=== PATIENT | female | born 1960 ===

== ENCOUNTER → 2023-02-23 13:59 | Outpatient (CLI) | payer OTHER, SELFPAY ==
--- NOTE | ~2023-02-23 | MR_ITS ---
MRI of the lumbar spine Clinical History: Pain Technique: Axial T2-weighted images, and sagittal T1-weighted, T2-weighted, and and T2 fat-sat images were acquired. Findings: There is no fracture or subluxation of the lumbar spine. Vertebral bodies maintain normal h eight and alignment. No suspicious bone marrow signal abnormality seen. At L1-L2, there is right foraminal disc bulge with mild to moderate facet arthropathy. No central can al stenosis. There is moderate to advanced right neural foraminal narrowing. Left neural foramen pres erved. At L2-L3, there is degenerative disc narrowing with mild diffuse disc bulge and mild to moderate face t arthropathy. There is mild central canal stenosis. There is moderate left neural foraminal narrowin g, and minimal right neural foraminal narrowing. L3-L4, there is degenerative disc disease. Disc bulge and facet arthropathy result in mild central ca nal stenosis and moderate to advanced bilateral neural foraminal narrowing. At L4-L5, disc bulge and facet arthropathy result in mild central canal stenosis and right lateral re cess stenosis and particular. There is advanced right neural foraminal narrowing. There is mild to mo derate left neural foraminal narrowing. At L5-S1, there is mild disc bulge with mild to moderate facet arthropathy. No greg central canal st enosis. Neural foramina are preserved. Paravertebral soft tissues are unremarkable. Impression: Moderate degenerative spondylosis, with multilevel neural foraminal narrowing and mild canal stenosis , as detailed above. Reviewed, dictated and finalized at [facility]. [employer] Impression: Moderate degenerative spondylosis, with multilevel neural foraminal narrowing a nd mild canal stenosis, as detailed above.
== END ==
DX: M47.817 Spondylosis without myelopathy or radiculopathy, lumbosacral region (principal)
CPT/HCPCS: 72148